=== PATIENT | female | born 1955 | race Caucasian/White ===

== ENCOUNTER 2017-12-08 13:26 | Inpatient (IN) | payer BC ==
[2017-12-19] MEDS ORDERED: FAMOTIDINE 20MG TABLET PO ONE (06:00)
[2017-12-19] MEDS ORDERED: ACETAMINOPHEN 1,000 MG/100 ML BTL IV ONE (06:00)
[2017-12-19] MEDS ORDERED: CELECOXIB 100 MG CAPSULE PO ONE (06:00)
[2017-12-19] MEDS ORDERED: METOCLOPRAMIDE 10 MG TABLET PO ONE (06:00)
[2017-12-19] MEDS ORDERED: MECLIZINE 25 MG TABLET PO ONE (06:00)
[2017-12-19] MEDS ORDERED: VANCOMYCIN HCL 1,000 MG in DEXTROSE 5 % IN WATER 250 ML IVPB ONE ×2 (06:00)
[2017-12-19] MEDS ORDERED: BISACODYL 10 MG SUPP RC PRN (10:08)
[2017-12-19] MEDS ORDERED: HYDROCODONE/APAP 5/325MG TABLET PO PRN ×2 (10:08)
[2017-12-19] MEDS ORDERED: ACETAMINOPHEN W/ CODEINE 300MG/30MG TABLET PO PRN ×2 (10:08)
[2017-12-19] MEDS ORDERED: ONDANSETRON HCL IV 4 MG/2 ML VIAL IVP PRN (10:08)
[2017-12-19] MEDS ORDERED: TRAMADOL HCL 50 MG TABLET PO PRN ×2 (10:08)
[2017-12-19] MEDS ORDERED: KETOROLAC 30 MG/ML VIAL IVP PRN ×2 (10:08)
[2017-12-19] MEDS ORDERED: MAGNESIUM HYDROXIDE 30 ML UDC PO PRN (10:08)
[2017-12-19] MEDS ORDERED: PROMETHAZINE HCL 12.5 MG in 0.9 % SODIUM CHLORIDE 100ML 50 ML IVPB PRN (10:08)
[2017-12-19] MEDS ORDERED: METOCLOPRAMIDE HCL 10 MG/2 ML VIAL IVP PRN (10:08)
[2017-12-19] MEDS ORDERED: ZOLPIDEM TARTRATE 5 MG TABLET PO PRN (10:08)
[2017-12-19] MEDS ORDERED: HYDROMORPHONE HCL 2 MG/ML VIAL IM PRN ×2 (10:08)
[2017-12-19] MEDS ORDERED: AL HYDROX/MAG HYDROX 30ML UD PO PRN (10:08)
[2017-12-19] MEDS ORDERED: NALOXONE 0.4 MG/1 ML VIAL IVP PRN (10:08)
[2017-12-19] MEDS ORDERED: HYDROCODONE/APAP 7.5/325MG TABLET PO PRN ×2 (10:08)
[2017-12-19] MEDS ORDERED: ACETAMINOPHEN W/ CODEINE 300MG/60MG TABLET PO PRN ×2 (10:08)
[2017-12-19] MEDS ORDERED: DIPHENHYDRAMINE HCL 25 MG CAPSULE PO PRN (10:08)
[2017-12-19] MEDS ORDERED: ACETAMINOPHEN 325 MG TAB PO PRN (10:08)
[2017-12-19 11:03] LABS: ABO GROUP O; ANTIBODY SCREEN NEGATIVE (NEGATIVE); RH TYPE NEGATIVE
[2017-12-19] MEDS ORDERED: BUPIVACAINE LIPOSOME 266MG/20ML VIAL IV ONE (14:00)
[2017-12-19] MEDS ORDERED: VANCOMYCIN HCL 1 GM VIAL IVPB ONE (14:00)
[2017-12-19] MEDS ORDERED: BUPIVACAINE 0.5% W/EPI MPF 30 ML VIAL IVP ONE ×2 (14:00)
[2017-12-19] MEDS ORDERED: TRANEXAMIC ACID 1,000 MG/10 ML ML IV ONE ×2 (14:00)
[2017-12-19] MEDS ORDERED: PATIENT OWN MED: OMEPRAZOLE 20 MG PO PRN (15:23)
[2017-12-19] MEDS ORDERED: DEXTROSE 5 % AND 0.9 % NACL 1,000 ML IV PRN (15:45)
[2017-12-19] MEDS: FERROUS SULFATE 325 MG TAB PO SCH (21:52)
[2017-12-19] MEDS: DOCUSATE SODIUM 100 MG CAPSULE PO SCH (21:52)
[2017-12-19] MEDS ORDERED: PATIENT OWN MED: GABAPENTIN 300 MG PO SCH (22:00)
[2017-12-19] MEDS: VANCOMYCIN HCL 1,000 MG in 0.9 % SODIUM CHLORIDE 250ML 250 ML IVPB SCH (23:12)
[2017-12-20 06:56] LABS: HEMATOCRIT 38.2 % (35.0-47.0); HEMOGLOBIN 11.8 gm/dl (11.6-16.0)
--- NOTE | 2017-12-20 07:09 | RADIOLOGY REPORT ---
EXAM: RIGHT HIP HISTORY: POSTOP RIGHT KATHERIN TODAY. TECHNIQUE: A single AP view of the right hip was obtained. Comparison: None. FINDINGS: The patient is postop right KATHERIN. The components appear in good position in the AP projection. Some air is seen in the soft tissues which is presumably postoperative in nature. IMPRESSION: POSTOP RIGHT KATHERIN. THE COMPONENTS APPEAR IN GOOD POSITION IN THE AP PROJECTION. JOB NUMBER: [id number] MTDD
--- NOTE | 2017-12-20 08:28 | Rehab Evaluation ---
Patient Information - Patient Information Diagnosis: right hip arthrosis Ordered Treatment: OT Evaluate and Treat Status: Initial Evaluation Surgery: Yes (right KATHERIN ) Date of Surgery: 12/19/17 Past Medical/Surgical Hx: PAST MEDICAL/SURGICAL HISTORY Past Surgical History LTHA left breast sx hyst c scopes PMH - Respiratory Hx Respiratory Disorders Yes Hx Sleep Apnea negative test Hx of SOB Yes: at times PMH - Cardiovascular Hx Cardiovascular Disorders No Exercise Tolerance Good PMH - Neuro Hx Neurological Disorders Yes Hx Neuropathy Yes: burning feet left worse than right PMH - GI Hx Gastrointestinal Disorders Yes Hx Gastroesophageal Reflux Yes PMH - Hx Genitourinary Disorders Yes Hx Bladder Problem Yes: some leaking PMH - Endocrine Hx Endocrine Disorders Yes Hx Diabetes Yes: "boarderline" Hx Thyroid Disease No PMH - Musculoskeletal Hx Musculoskeletal Disorders Yes Hx Arthritis Yes: hips Comment: bursitis left hip PMH - Psych Hx Psychiatric Problems No PMH - Hematology/Oncology Hx Hematology/Oncology No Disorders Premorbid Status: Detail (Pt lives alone in a 1 story house with basement laundry. She has 2 steps and 1 railing at the entrance. She has a walk in shower with suction grab bars, shower seat and hand held shower as well as a toilet riser. She does not have a grab bar at toilet. Prior to surgery she was Ind with all ADLs/IADLs, driving and working. She is getting a walker but she is not sure if it has wheels. Her mother will be staying with her for several weeks and her daughter lives close by.) Social History: Detail (Supportive mother and daughter.) Precautions: [place], Fall, Other (total hip precautions) - Time With Patient Total Time Spent With Patient (Min): 30 Treatment Procedures: Detail (OT eval low complexity) Subjective Information - Subjective Information Per Patient Objective Data - Pain Pain Present: Yes (07/09) - Mental Status Patient Orientation: Oriented x3 - Visual Perception Appears within normal limits for therapeutic activities - ROM Within normal limits (Kenneth UE AROM WNL) - Strength/Tone Within normal limits (Kenneth UE strength WNL) - Coordination Appears within normal limits for therapeutic activities - Transfers Independent (Ind with sit to stand from raised chair.) - Balance Balance Sitting: Good Balance Standing: Good - Sensation Intact - ADL's/IADL's Detail (Pt educated and able to demonstrate learning of LE dressing with use of interior systems carpenter, sock aid and long shoe horn. She reports she has a suction cup interior systems carpenter at home and her mom will be there to assist with other self cares as needed. She did require verbal cueing to adhere to hip precautions during LE dressing. Reviewed shower and kitchen modifications/safety, pt verbalizes learning.) Therapy Assessment - Therapy Assessment Detail (Pt able to demonstrate Ind with LE dressing using interior systems carpenter, sock aid and long shoe horn.) Problem List - Problem List Occupational Therapy Problem List: Detail (No current OT problems identified.) Goals - Goals Occupational Therapy Goals: No current OT goals identified. Prognosis - Prognosis Good Plan - Plan Occupational Therapy Plan: No further IP OT recommended at this time. Thank you for this referral.
[2017-12-20] MEDS: FERROUS SULFATE 325 MG TAB PO SCH (09:19)
[2017-12-20] MEDS: DOCUSATE SODIUM 100 MG CAPSULE PO SCH (09:20)
[2017-12-20] MEDS ORDERED: RIVAROXABAN 10 MG TABLET PO SCH (10:00)
[2017-12-20] MEDS ORDERED: CELECOXIB 100 MG CAPSULE PO SCH (10:00)
--- NOTE | 2017-12-20 10:29 | Rehab Evaluation ---
Patient Information - Patient Information Diagnosis: right hip arthrosis Ordered Treatment: PT Evaluate and Treat Status: Initial Evaluation Surgery: Yes (right KATHERIN ) Date of Surgery: 12/19/17 Past Medical/Surgical Hx: PAST MEDICAL/SURGICAL HISTORY Past Surgical History LTHA left breast sx hyst c scopes PMH - Respiratory Hx Respiratory Disorders Yes Hx Sleep Apnea negative test Hx of SOB Yes: at times PMH - Cardiovascular Hx Cardiovascular Disorders No Exercise Tolerance Good PMH - Neuro Hx Neurological Disorders Yes Hx Neuropathy Yes: burning feet left worse than right PMH - GI Hx Gastrointestinal Disorders Yes Hx Gastroesophageal Reflux Yes PMH - Hx Genitourinary Disorders Yes Hx Bladder Problem Yes: some leaking PMH - Endocrine Hx Endocrine Disorders Yes Hx Diabetes Yes: "boarderline" Hx Thyroid Disease No PMH - Musculoskeletal Hx Musculoskeletal Disorders Yes Hx Arthritis Yes: hips Comment: bursitis left hip PMH - Psych Hx Psychiatric Problems No PMH - Hematology/Oncology Hx Hematology/Oncology No Disorders Premorbid Status: Detail (Pt lives alone in a 1 story house with basement laundry. She has 2 steps and 1 railing at the entrance. She has a walk in shower with suction grab bars, shower seat and hand held shower as well as a toilet riser. She does not have a grab bar at toilet. Prior to surgery she was Ind with all ADLs/IADLs, driving and working. She is getting a walker but she is not sure if it has wheels. Her mother will be staying with her for several weeks and her daughter lives close by.) Social History: Detail (Supportive mother and daughter.) Precautions: [place], Fall, Other (total hip precautions) - Time With Patient Total Time Spent With Patient (Min): 20 Treatment Procedures: Detail (Initial Evaluation, gait training) Subjective Information - Subjective Information Per Patient (The patient had complaints of R hip level 5.) Objective Data - Mental Status Patient Orientation: Oriented x3 - Visual Perception Appears within normal limits for therapeutic activities - ROM Not within normal limits (The patient's R hip is withing THR precautions. All other R LE AROM is WNL.) - Strength/Tone Not within normal limits (The patient's R LE strength was not tested s/p but was functional the patient was able to lift R LE abd ambulate. The patient's L LE was generally 4+ to 5/5.) - Bed Mobility Independent (The patient was independent with supine to and from sit transfer. The patient used R arm to lift R LE with sit to supine. The patient followed THR precautions with bed mobility.) - Transfers Independent (The patient was independent with sit to and from stand transfer.) - Balance Balance Sitting: Good Balance Standing: Good - Sensation Intact - Gait Detail (The patient ambulated with front wheeled walker, WBAT on the R LE a distance of 100 feet x 1 indepenedntly. The patient ambulated on 3 steps using proper technique with supervision for safety.) Therapy Assessment - Therapy Assessment Detail (The patient was independent with bed mobility, transfer and ambulation on levels and stairs. The patient correctly indentified THR precautions and followed them throughout mobility. The patient is discharged from inpt. PT and is to receive Home PT.) Patient Education - Patient Education Teaching Topic: Exercise/Activity (The patient completed the following THR exercises: ankle pumps, quad sets, hamstring sets, gluteal sets, heel slides and hip abduction. Hip abduction was painful as to be expected and patient was instructed to complete in pain free range and reduce reps.), Precautions (The patient correctly followed THR precautions.) Response: Return Demonstration Teaching Method: Demonstration, Handout Teaching Recipient: Patient Barriers To Learning: None Problem List - Problem List Physical Therapy Problem List: Detail (Decreased R LE strength as to be expected following surgery) Occupational Therapy Problem List: Detail (No current OT problems identified.) Goals - Goals Physical Therapy Goals: All inpatient PT goals have been met. The patient is to receive Home PT upon discharge from [facility]. Occupational Therapy Goals: No current OT goals identified. Prognosis - Prognosis Good Plan - Plan Physical Therapy Plan: The patient is discharged from inpatient PT due to all inpatient PT goals have been met. The patient is to receive Home PT. Occupational Therapy Plan: No further IP OT recommended at this time. Thank you for this referral.
[2017-12-20] MEDS: VANCOMYCIN HCL 1,000 MG in 0.9 % SODIUM CHLORIDE 250ML 250 ML IVPB SCH (11:20)
[2017-12-20] MEDS ORDERED: MIDAZOLAM HCL 2MG/2ML VIAL IV ONE (16:12)
[2017-12-20] MEDS ORDERED: PROPOFOL 10 MG/ML VIAL IV ONE (16:12)
--- NOTE | 2017-12-21 21:19 | Operative Note ---
DATE OF SURGERY: 12/19/2017 PREOPERATIVE DIAGNOSIS: End-stage right hip arthrosis. POSTOPERATIVE DIAGNOSIS: End-stage right hip arthrosis. OPERATION: Right total hip arthroplasty. SURGEON: Edmond Sawyer M.D. ANESTHESIA: Spinal. Ilana Henning CRNA. COMPLICATIONS: None. BLOOD LOSS: 200 mL. OPERATIVE FINDINGS: [id number] hip arthrosis. COMPONENTS PLACED: [employer] Synergy total hip arthroplasty system, proximally porous-coated, press-fit, size 15 high-offset femoral stem with a 32 -3 mm Oxinium femoral head component, a 52 mm three-hole reflection acetabular component with one acetabular screw, two screw caps, a centrally threaded screw cap, and a 35 degree high-crosslinked polyethylene liner. INDICATIONS FOR OPERATION: This is a 62-year-old female who has had persistent pain and dysfunction in her hip for several years. She is status post left hip arthroplasty done by myself several years ago and she now is scheduled for the right. I explained the risks and benefits to her in detail for her diagnosis and procedures including but not limited to; infection, nerve injury, vessel injury, persistent pain, persistent numbness and tingling in her hip, periprosthetic fracture, need for resection arthroplasty should the components become infected or loosened, nerve injury, vessel injury, blood clot, leg length discrepancy, need for further procedures, need for anticoagulation to prevent blood clots and risks associated with these medications. All of her questions were answered. Rehab and course were outlined and she agreed to proceed. PROCEDURE: The patient was brought to the O.R. and placed in the left lateral decubitus position. Her right hip and lower extremity were prepped and draped in the usual sterile fashion, prepped again with ChloraPrep after it was draped. Intraoperative time-out was performed. Next, a posterior approach was performed over the hip. This was infiltrated with 0.5% Marcaine with Epinephrine, 2 grams of Tranexamic Acid, and Exparel mixture. We used a portion of that. The skin and subcutaneous tissues were dissected down. Gluteal fascia was split longitudinally and the subgluteal plane was bluntly dissected. A self-retainer was brought in. I identified the sciatic nerve and this was carefully protected at all times. I took off the short external rotators. I incised the capsule proximally and distally and released the capsule and then dislocated the femoral head. She had a wide pelvis, large femoral head and neck. I resected the femoral head about 1.5 cm above the lesser trochanter and inserted the boxed osteotome and started reaming by hand first and then working in 1 mm increments up to a size 15. We stopped there. We broached to 13 and calcar planed in 15 degrees of anteversion, then a 14 and calcar planed, and then a 15 and calcar planed and had good fit. Next, attention was turned to the acetabulum. We released the capsule anteriorly , placed the inferior acetabular retractor and a retractor anteriorly and retracted the proximal femur. We had good exposure of the acetabulum. I removed some of the capsule and labrum and then started reaming in 1 mm increments in 45 degrees of inclination and 20 degrees of anteversion until we reamed up to a size 51. We trialed a 52 and had a good fit and we stopped there. Next, we irrigated the acetabulum copiously. We impacted down the real three- hole reflection acetabular shell using a helicopter guide, again in 45 of inclination and 20 degrees of anteversion. We verified this was flush with the medial wall. Next we drilled the posterior superior central quadrant screw hole and inserted a 40 mm screw and had excellent purchase. We then inserted the trial liner, inserted the trial stem again and re-reduced the hip and did trial range of motion. The best combination for range of motion, stability, and leg lengths was a 32 -3 mm high-offset neck. This allowed for good abductor tensioning, stability with extension in external rotation, stability with flexion in internal rotation, and symmetric leg lengths and this was the size we used. Next, we removed all trial components and irrigated the acetabulum copiously. We placed the two screw caps and the centrally threaded screw cap and impacted down the real 35 degree hooded high-crosslinked polyethylene liner with the tenorio in the posterior superior quadrant. Next, we irrigated the femoral canal and impacted down the real femoral stem in 15 degrees of anteversion until the bead line was flush with the medial calcar and was secure and stable. We cleaned the trunnion and impacted down the real femoral head. We re-reduced the hip. Final range of motion and stability was the same and symmetric leg lengths. Next, we irrigated copiously, repaired the gluteal fascia with running #2 Quill suture. Irrigated and again and closed skin deep with 2-0 Vicryl and placed the Acnel and provisional dressing with ABDs, Fluffs to be changed tomorrow to a KATHRYN dressing. The patient tolerated the procedure well. No intraoperative complications. All sponge, needle, and blade counts were correct. Recovery stable, neurovascularly intact. She will be discharged to the Floor and will be discharged tomorrow. She will follow-up in two weeks. She will have Home Therapy and Nurse. cc: Dr. Aaron Cook JOB NUMBER: [id number] MTDD
== END 2017-12-20 16:00 | disposition home health service (06) | DRG 470 ==
LOC: MEDSURG 12-19 09:55 → UNDOADMIN 12-19 09:55
PROVIDERS: ADMIT Orthopaedic Surgery; ATTEND Orthopaedic Surgery
PROC: 0SR906A Replacement of Right Hip Joint with Oxidized Zirconium on Polyethylene Synthetic Substitute, Uncemented, Open Approach (ICD-10-PCS; principal; 2017-12-19 12:00)
DX: M16.11 Unilateral primary osteoarthritis, right hip (principal)
CPT/HCPCS: 85014; 85018; 86850; 86900; 86901; C1776; J7050; J7060

== ENCOUNTER 2019-06-25 10:00 | Inpatient (IN) | payer BC ==
[~2019-06-25 10:00] MED LIST: ACETAMINOPHEN 325 MG TAB PO PRN; ACETAMINOPHEN 500 MG TABLET PO ONE; ACETAMINOPHEN W/ CODEINE 300MG/30MG TABLET PO PRN; ACETAMINOPHEN W/ CODEINE 300MG/60MG TABLET PO PRN; AL HYDROX/MAG HYDROX 30ML UD PO PRN; BISACODYL 10 MG SUPP RC PRN; CEFAZOLIN 2 Gram 2 GM/50 ML BAG IVPB ONE; CELECOXIB 100 MG CAPSULE PO ONE; DEXTROSE 5 % AND 0.9 % NACL 1,000 ML IV PRN; DIPHENHYDRAMINE HCL 25 MG CAPSULE PO PRN; FAMOTIDINE 20MG TABLET PO ONE; HYDROCODONE/APAP 5/325MG TABLET PO PRN; HYDROCODONE/APAP 7.5/325MG TABLET PO PRN; HYDROMORPHONE HCL 2 MG/ML VIAL IM PRN; KETOROLAC 30 MG/ML VIAL IVP PRN; MAGNESIUM HYDROXIDE 30 ML UDC PO PRN; METOCLOPRAMIDE 10 MG TABLET PO ONE; METOCLOPRAMIDE HCL 10 MG/2 ML VIAL IVP PRN; NALOXONE 0.4 MG/1 ML VIAL IVP PRN; ONDANSETRON HCL IV 4 MG/2 ML VIAL IVP PRN; PROMETHAZINE HCL 12.5 MG in 0.9 % SODIUM CHLORIDE 100ML 50 ML IVPB PRN; SCOPOLAMINE 1 PATCH TDSY TD ONE; TRAMADOL HCL 50 MG TABLET PO PRN; VANCOMYCIN 1GM/200ML PREMIX 1 GM/200 ML PIGGYBACK IVPB ONE; ZOLPIDEM TARTRATE 5 MG TABLET PO PRN
[2019-06-25 10:55] LABS: ABO GROUP O; RH TYPE NEGATIVE
[2019-06-25 10:56] LABS: ANTIBODY SCREEN NEGATIVE (NEGATIVE)
[2019-06-25] MEDS ORDERED: RINGERS SOLUTION,LACTATED 1,000 ML IV ONE ×3 (11:00→13:47)
[2019-06-25] MEDS ORDERED: TRANEXAMIC ACID 1,000 MG/10 ML ML IV ONE (12:00)
[2019-06-25] MEDS ORDERED: BUPIVACAINE LIPOSOME 266MG/20ML VIAL IU ONE (12:40)
[2019-06-25] MEDS ORDERED: BUPIVACAINE 0.5% W/EPI MPF 30 ML VIAL IU ONE (12:40)
[2019-06-25] MEDS ORDERED: VANCOMYCIN HCL 1 GM VIAL IR ONE (12:42)
[2019-06-25] MEDS ORDERED: TRANEXAMIC ACID 1,000 MG/10 ML ML IU ONE (12:46)
[2019-06-25] MEDS ORDERED: VASOPRESSIN 20 U/ML VIAL IM ONE (13:54)
--- NOTE | 2019-06-25 16:16 | RADIOLOGY REPORT ---
EXAMINATION: Right Hip Single View EXAM DATE: 06/25/2019 3:53 PM TECHNIQUE: AP INDICATION: Postoperative evaluation of right hip. COMPARISON: Plain films 12/19/2017 ENCOUNTER: Initial FINDINGS: The right hip arthroplasty prosthesis demonstrates expected alignment. Soft tissue gas is demonstrate d with multiple densities projecting over the soft tissues of the right hip. A curvilinear lucency tr aversing the greater trochanter is suspected represent artifact rather than fracture. No other eviden ce of fracture. IMPRESSION: 1. Postoperative appearance without convincing evidence of fracture. 2. Specifically, a curvilinear lucency traversing the greater trochanter is suspected to represent ar tifact rather than nondisplaced fracture Dictated by: AGUILA BROOKS MD on 06/25/2019 4:13 PM. .
--- NOTE | 2019-06-25 17:35 | Rehab Evaluation ---
Patient Information - Patient Information Diagnosis: R total hip revision Ordered Treatment: PT Evaluate and Treat Status: Initial Evaluation Surgery: Yes (R total hip revision) Date of Surgery: 06/25/19 Past Medical/Surgical Hx: PAST MEDICAL/SURGICAL HISTORY Surgery to Affected Area? No Recent Surgery? Past Surgical History RTHA 12-19-17 LTHA left breast sx hyst c scopes PMH - Respiratory Hx Respiratory Disorders Yes Hx Sleep Apnea negative test Hx of URI Yes: SINUS CONGESTION AND DRAINAGE Hx of SOB Yes: at times PMH - Cardiovascular Hx Cardiovascular Disorders No Exercise Tolerance Fair Comment: HYPERLIPIDEMIA PMH - Neuro Hx Neurological Disorders Yes Hx Neuropathy Yes: burning feet left worse than right PMH - GI Hx Gastrointestinal Disorders Yes Hx Gastroesophageal Reflux Yes PMH - Hx Genitourinary Disorders Yes Patient No Hx Bladder Problem Yes: some leaking PMH - Endocrine Hx Endocrine Disorders Yes Hx Diabetes Yes: "boarderline" Hx Thyroid Disease No Hx of NIDDM Yes: ON METFORMIN X'S 1.5 YRS PMH - Musculoskeletal Hx Musculoskeletal Disorders Yes Hx Arthritis Yes Comment: bursitis left hip PMH - Psych Hx Psychiatric Problems No PMH - Hematology/Oncology Hx Hematology/Oncology No Disorders Premorbid Status: Detail (The patient was independent with all mobility prior to surgery.) Social History: Detail (The patietn lives with daughter in a one story house with 3 steps at the enterance and no handrails. The bathroom is equipped with a walk in shower, hand held shower, shower bench, elevated toilet with a riser seat. Grab bars are present in the shower but not by the toilet. The patient has a front wheeled walker and standard cane, probation agent, long handled sponge .) Precautions: [place], Fall, Other (THR precautions, WBAT on the R LE.) - Time With Patient Total Time Spent With Patient (Min): 30 Treatment Procedures: Detail (Initial evaluation, low complexity, gait training.) Subjective Information - Subjective Information Per Patient (The patient had no pain complaints.) Objective Data - Mental Status Patient Orientation: Oriented x3 - Visual Perception Appears within normal limits for therapeutic activities - ROM Not within normal limits (The patient's R hip ROM is within total hip precautio ns.) - Strength/Tone Not within normal limits (The patient's LE strength was not tested s/p surgery but was functional.) - Bed Mobility Independent (The patient was independent with supine to sit transfer.) - Transfers Independent (The patient was independent with sit to and stand transfer.) - Balance Balance Sitting: Good Balance Standing: Good - Sensation Intact - Gait Detail (The patient ambulated with front wheeled walker 50 feet x 1 with CG of 2 for safety. The patient became lightheaded. PT grabbed a chair for pt. to sit. Pt. became unresponsive for aprox. 5 seconds and PT tech. ran to get RN. Refer to nursing notes for vitals initial B/P was 64/30. Pt. was returned back to room via Nursing staff pushing chair. Pt. was in and out of responsiveness. Rapid Response was called after pt. did not respond for > 5 seconds. Pt. responded prior to team's arrival and vomitted. Pt. was returned to bed per Rapid Response team .) Therapy Assessment - Therapy Assessment Detail (Patient did well with bed mobility, ambulation and transfers prior to multiple syncope episodes. Will continue PT tomorrow if medically stable and progress pt. as able .) Problem List - Problem List Physical Therapy Problem List: Detail (Decreased R LE strength.) Goals - Goals Physical Therapy Goals: 1) The patient will ambulate with assistive device WBAT on the R LE independently 100 feet. 2) The patient will ambulate on stairs using proper technique with supervision for safety. 3) The patient will be independent with THR HEP. Plan - Plan Physical Therapy Plan: PT for 1-2 sessions as needed for gait training on levels and stairs and instruction in THR HEP.
[2019-06-25] MEDS ORDERED: METFORMIN 500 MG TABLET PO SCH (22:00)
[2019-06-25] MEDS ORDERED: PANTOPRAZOLE SODIUM 40 MG TABLET PO SCH (22:00)
[2019-06-25] MEDS ORDERED: GABAPENTIN 300 MG CAPSULE PO SCH (22:00)
[2019-06-25] MEDS ORDERED: ATORVASTATIN 20 MG TABLET PO SCH (22:00)
[2019-06-25] MEDS: FERROUS SULFATE 325 MG TAB PO SCH (22:22)
[2019-06-25] MEDS: DOCUSATE SODIUM 100 MG CAPSULE PO SCH (22:23)
[2019-06-25] MEDS: VANCOMYCIN 1GM/200ML PREMIX 1 GM/200 ML PIGGYBACK IVPB SCH (22:25)
[2019-06-26 06:42] LABS: HEMATOCRIT 32.8 % (35.0-47.0); HEMOGLOBIN 9.9 gm/dl (11.6-16.0)
--- NOTE | 2019-06-26 08:24 | Operative Note ---
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 OPERATION: REVISION OF ALL OF THE ACETABULAR COMPONENTS AND FEMORAL HEAD RIGHT TOTAL HIP ARTHROPLASTY. SURGEON: Edmond Sawyer M.D. ANESTHESIA: Spinal. COMPLICATIONS: None. BLOOD LOSS: Minimal. OPERATIVE FINDINGS: Inadequate anteversion of acetabulum likely causing dislocation with wear of the 35 degree hooded liner from recurrent dislocations posterior superiorly, predominantly posteriorly and posterior superiorly. INDICATION: This is a 63-year-old female who is well known to myself, she is status post bilateral hip replacements, left done years ago and the right was done about two years ago. She did well initially for the first year and then she started dislocating after about a year out. She has had three to four recurrent dislocations going to the Emergency Room. She states she has been following her hip precautions for the most part although I question that and at this point she had a repeat dislocation last month when she came in for revision when she felt the acetabulum was likely inadequately anteverted, although there was some anteversion in the acetabulum approximately 10-15 degrees. I explained the risks and benefits to her in detailed for her diagnosis and procedures including, but not limited to infection, nerve injury, vessel injury, persistent pain, persistent numbness and tingling in her hip, periprosthetic fracture, need for resection arthroplasty should the components become infected or loosened, nerve injury, vessel injury, blood clot, limb length discrepancy, need for anticoagulation to prevent blood clots and risks associated with these medications, or need for further procedures. All of her questions were answered. Rehab course was outlined. She agreed to proceed. PROCEDURE: The patient was brought to the Operating Room and placed in the left lateral decubitus position. Her right hip and lower extremity were prepped and draped in sterile fashion. The right hip was prepped again with ChloraPrep and draped. Intraoperative timeout was performed. Next, we used the previous incisional marked, we infiltrated there with 0.5% Marcaine with Epinephrine, Exparel, and tranexamic acid mixture which were used throughout the entire case at different layers of the procedure. The skin and subcutaneous tissues were dissected down. We incised the gluteal fascia longitudinally. There was some moderate scarring there, dissected deeper, got to the sciatic nerve, and there were some adhesions over the sciatic nerve and we carefully released those to the gluteus. Next, the posterior hip joint capsule was completely ruptured from recurrent dislocations. There is some hemosiderin deposition there and some slight bleeding there. We sent some tissue for culture and sent some culture swabs of the fluid. There is no evidence of any gross purulence or infection. Next, we dissected further around the acetabulum and hip capsule removing it peripherally so we can remove the acetabulum. The acetabulum was not in inadequate enough inversion. There was some anteversion, however, not unusual, 20 degrees is probably likely 10 degrees of inversion. The 35 degree hooded liner was obviously worn in the central portion of it from recurrent dislocation of the ball over the edge so we then removed the femoral head and for releasing the capsule anteriorly, we took the femoral stem and neck superiorly and wrapped it with a sponge wrap to protect it and placed it superiorly, we tucked that out of the way and removed the acetabular liner without difficulty. Next we removed the acetabular screw, center screw cap and then used spoon acetabular osteotomes to remove the acetabular shell component without difficulty and with minimal blood loss. The periphery and central portion of the acetabulum was intact, we then started reaming with a 52 mm reamer, it was medialized enough and then peripherally reamed up to 56, we tried a 58 press fit and it fit nicely using helicopter guider with more anteversion 20-25 degrees and 45 degrees inclination fit nicely and this is the size that we used. Next, we irrigated the acetabular shell copiously, she had one central small 1 cm defect in the bone that was packed with reaming's from the acetabular reamers and we packed the rest of the reaming shavings into the acetabulum and then impacted. Next we impacted down the real three hole shelf with a helicopter guide again 45 degrees inclination and 20 degrees anteversion until it was flush with the medial wall. Next we drilled the posterior central superior quadrant screw hole and inserted that screw which is 45 mm, it had excellent tight purchase and this was the only screw we needed. We placed a trial liner, did a trial reduction and the best combination range of motion stability and as close to leg lengths as possible without making the leg too short and causing more instabilities with a 32 - 3 femoral head component which is what she had before and this allowed for stability with flexion to 90 and rotation is 70-80 for the hip being dislocated. Stability with extension in external rotation and this was the size that we used. Next we removed all trial components, irrigated copiously, placed the centrally threaded screw cap, the two other screw caps and impacted down the real 58 mm acetabular liner with the tenorio in the posterior superior quadrant, impacted that down, verified it was interlocked. We cleaned and dried the trunnion after removing the protective sponge around the neck, head and trunnion and impacted down the real femoral head component. We re-reduced the hip. Final range of motion appeared to be the same, irrigated copiously, and placed Vancomycin powder deep in the joint. We closed the gluteal fascia with running #2 Quill suture, irrigated again, closed the skin deep with 2-0 Vicryl and then a KATHRYN dressing was applied. Abduction pillow. Postop x-ray revealed good fit orientation of the components. The patient tolerated the procedure well. No intraoperative complications. Sponge, needle, and blade counts were correct. Recovery stable. Neurovascularly intact. She will be discharged to the floor and will be discharged home tomorrow. Follow-up in two weeks. JOB NUMBER: [id number] [facility]
[2019-06-26] MEDS ORDERED: FLU VAC QS 2019-20 (INPT, 6MO+) 60MCG/0.5ML IM ONE (09:00)
[2019-06-26] MEDS ORDERED: PHENYLEPHRINE HCL 10 MG/ML VIAL IVP ONE (09:19)
[2019-06-26] MEDS ORDERED: LIDOCAINE 2% MDV (20MG/ML) 20ML VIAL IV ONE (09:19)
[2019-06-26] MEDS ORDERED: MIDAZOLAM HCL 2MG/2ML VIAL IV ONE (09:19)
[2019-06-26] MEDS ORDERED: PROPOFOL 10 MG/ML VIAL IV ONE (09:19)
[2019-06-26] MEDS ORDERED: KETOROLAC 30 MG/ML VIAL IVP ONE (09:19)
--- NOTE | 2019-06-26 09:58 | Physical Therapy Tx Note ---
Physical Therapy Tx Note - Treatment Note Tolerated: Good Total Time Spent With Patient: 20 Physical Therapy Tx Note: Detail (The patient had minimal complaints of R hip pain. The patient reports she is feeling well today with no symptoms of lightheadedness. The patient was independent with supine to and from sit transfer. The patient was independent with sit to and from stand transfer. The patient ambulated with front wheeled walker WBAT on R LE independently a dist ance of 120 feet x 1. The patient ambulated on 3 steps with use of one railing and folded walker with supervision for safety using proper technique. Discussed how patient would ambulate on stairs without handrails including using wall for support. The patient's THR HEP included: gluteal sets, quad sets, hamstring sets, supine hip abduction, heel slides and ankle pumps. The patient has met all inpt. PT goals and is discharged from inpt. PT.) Physical Therapy Problem List: Detail (Decreased R LE strength.) Physical Therapy Goals: 1) The patient will ambulate with assistive device WBAT on the R LE independently 100 feet.(Goal Met). 2) The patient will ambulate on stairs using proper technique with supervision for safety.(Goal Met). 3) The pa tient will be independent with THR HEP.(Goal Met) Physical Therapy Plan: The patient is discharged from inpt. PT and is to continue with Home PT.
[2019-06-26] MEDS ORDERED: CELECOXIB 100 MG CAPSULE PO SCH (10:00)
[2019-06-26] MEDS ORDERED: RIVAROXABAN 10 MG TABLET PO SCH (10:00)
[2019-06-26] MEDS: FERROUS SULFATE 325 MG TAB PO SCH (10:26)
[2019-06-26] MEDS: DOCUSATE SODIUM 100 MG CAPSULE PO SCH (10:27)
--- NOTE | 2019-06-26 10:35 | Rehab Evaluation ---
Patient Information - Patient Information Diagnosis: dislocation right hip prosthesis Ordered Treatment: OT Evaluate and Treat Status: Initial Evaluation Surgery: Yes (R total hip revision) Date of Surgery: 06/25/19 Past Medical/Surgical Hx: PAST MEDICAL/SURGICAL HISTORY Surgery to Affected Area? No Recent Surgery? Past Surgical History RTHA 12-19-17 LTHA left breast sx hyst c scopes PMH - Respiratory Hx Respiratory Disorders Yes Hx Sleep Apnea negative test Hx of URI Yes: SINUS CONGESTION AND DRAINAGE Hx of SOB Yes: at times PMH - Cardiovascular Hx Cardiovascular Disorders No Exercise Tolerance Fair Comment: HYPERLIPIDEMIA PMH - Neuro Hx Neurological Disorders Yes Hx Neuropathy Yes: burning feet left worse than right PMH - GI Hx Gastrointestinal Disorders Yes Hx Gastroesophageal Reflux Yes PMH - Hx Genitourinary Disorders Yes Patient No Hx Bladder Problem Yes: some leaking PMH - Endocrine Hx Endocrine Disorders Yes Hx Diabetes Yes: "boarderline" Hx Thyroid Disease No Hx of NIDDM Yes: ON METFORMIN X'S 1.5 YRS PMH - Musculoskeletal Hx Musculoskeletal Disorders Yes Hx Arthritis Yes Comment: bursitis left hip PMH - Psych Hx Psychiatric Problems No PMH - Hematology/Oncology Hx Hematology/Oncology No Disorders Premorbid Status: Detail (The patient was independent with all mobility, meal prep, laundry and home mgmt prior to surgery.) Social History: Detail (The patient lives with daughter in a one story house with 3 steps at the entrance and no handrails. The bathroom is equipped with a walk in shower, hand held shower, shower bench, elevated toilet with a riser seat. Grab bars are present in the shower but not by the toilet. The patient has a front wheeled walker and standard cane, straightener gun parts, sock aid, long shoe horn and long handled sponge .) Precautions: [place], Fall, Other (THR precautions, WBAT on the R LE.) - Time With Patient Total Time Spent With Patient (Min): 25 Treatment Procedures: Detail (OT eval low complexity) Subjective Information - Subjective Information Per Patient Objective Data - Pain Pain Present: Yes (09/06) - Mental Status Patient Orientation: Oriented x3 - Visual Perception Appears within normal limits for therapeutic activities - ROM Within normal limits (Kenneth UE AROM WNL) - Strength/Tone Within normal limits (Kenneth UE strength WNL) - Coordination Appears within normal limits for therapeutic activities - Bed Mobility Independent (Ind with supine to sit) - Transfers Independent (Ind with sit to stand from EOB) - Balance Balance Sitting: Good Balance Standing: Good - Sensation Intact - ADL's/IADL's Detail (Pt educated and able to demonstrate learning of modified LE dressing techniques while using straightener gun parts to maintain total hip precautions. She demonstrated doffing slipper socks and donning pants and slip on shoes with use of straightener gun parts and required min verbal cueing to maintain hip precautions. Reviewed kitchen and shower safety and modifications, pt verbalized understanding and reports her daughter will be assisting after discharge.) Therapy Assessment - Therapy Assessment Detail (Pt knowledgeable of hip precautions and use of adaptive equipment. She was able to complete LE dressing with straightener gun parts Indly.) Problem List - Problem List Physical Therapy Problem List: Detail (Decreased R LE strength.) Occupational Therapy Problem List: Detail (No current IP OT problems identified.) Goals - Goals Physical Therapy Goals: 1) The patient will ambulate with assistive device WBAT on the R LE independently 100 feet.(Goal Met). 2) The patient will ambulate on stairs using proper technique with supervision for safety.(Goal Met). 3) The patient will be independent with THR HEP.(Goal Met) Occupational Therapy Goals: No current IP OT goals identified. Prognosis - Prognosis Good Plan - Plan Physical Therapy Plan: The patient is discharged from inpt. PT and is to continue with Home PT. Occupational Therapy Plan: Pt is discharged from IP OT. Thank you for this referral.
[2019-06-26] MEDS: VANCOMYCIN 1GM/200ML PREMIX 1 GM/200 ML PIGGYBACK IVPB SCH (10:56)
== END 2019-06-26 13:30 | disposition home health service (06) | DRG 468 ==
LOC: MEDSURG 10:00 → EDSTATUS 12:00
PROVIDERS: ADMIT Orthopaedic Surgery; ATTEND Orthopaedic Surgery
PROC: 0SP90JZ Removal of Synthetic Substitute from Right Hip Joint, Open Approach (ICD-10-PCS; 2019-06-25)
PROC: 0SR906A Replacement of Right Hip Joint with Oxidized Zirconium on Polyethylene Synthetic Substitute, Uncemented, Open Approach (ICD-10-PCS; principal; 2019-06-25 12:00)
DX: T84.020A Dislocation of internal right hip prosthesis, initial encounter (principal); M24.451 Recurrent dislocation, right hip; E11.9 Type 2 diabetes mellitus without complications; E78.00 Pure hypercholesterolemia, unspecified; K21.9 Gastro-esophageal reflux disease without esophagitis
CPT/HCPCS: 36416; 82948; 85014; 85018; 86850; 86900; 86901; 87070; 94761; C1776; J1885; J2370; J3370; J3490; J7120